=== PATIENT | male | born 1980 | race Caucasian/White ===

== ENCOUNTER 2018-09-12 12:30 | Emergency (ER) | payer MEDICAID ==
[~2018-09-12] VITALS: Ht 172.7 cm; Wt 81.4 kg
[2018-09-12 12:38] VITALS: BP 150/79; PULSE 80; RESP 16; Ht 172.7 cm; Wt 81.4 kg
--- NOTE | 2018-09-12 13:48 | ERD ---
ER Documentation Chief Complaint Chief Complaint RT EYE REDNESS , ONSET LAST NIGHT HPI 38-year-old male presents with complaint of right eye redness and pain since last night. 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 ROS All systems reviewed and are negative except as per history of present illness. Medications Home Meds Active Scripts Ibuprofen* (Motrin*) 600 Mg Tab, 600 MG PO Q6, #30 TAB Prov:PAPI HERNANDEZ 09/12/18 Erythromycin Base (Erythromycin) 1 Gm Oint...g., 1 APPLIC RIGHT EYE QID for 7 Days Prov:PAPI HERNANDEZ 09/12/18 Allergies Allergies: Coded Allergies: No Known Allergy (Unverified , 09/12/18) PMhx/Soc Medical and Surgical Hx: pt denies Medical Hx, pt denies Surgical Hx Hx Alcohol Use: No Hx Substance Use: No Hx Tobacco Use: No Smoking Status: Never smoker FmHx Family History: No diabetes, No coronary disease, No other Physical Exam Vitals Vital Signs Date Temp Pulse Resp B/P (MAP) Pulse Ox O2 O2 Flow FiO2 Time Delivery Rate 09/12/18 98.2 80 16 150/79 98 12:38 (102) Physical Exam Const: No acute distress Head: Atraumatic Eyes: Normal Conjunctiva ENT: Normal External Ears, Nose and Mouth. Neck: Full range of motion. No meningismus. Resp: Clear to auscultation bilaterally Cardio: Regular rate and rhythm, no murmurs Abd: Soft, non tender, non distended. Normal bowel sounds Skin: No petechiae or rashes Back: No midline or flank tenderness Ext: No cyanosis, or edema Neur: Awake and alert Psych: Normal Mood and Affect Eye Exam w/ Wood's Lamp - bilateral: Visual Acuity: WNL Visual Campos: Intact in all four quadrants bilaterally Lac ducts/glands: No swelling Lids w/ evertion: Normal, no foreign body Conj/Rosebud: Clear, negative Fluorescein/Verónica's Anterior Chamber: Clear Tonopen readings: 22 Retina exam: No obvious abnormality Results 24 hrs Current Medications Medications Dose Sig/Jose L Start Time Status Last (Trade) Ordered Route PRN Stop Time Admin Dose Reason Admin Fluorescein 1 strip ONCE ONCE 09/12/18 DC Sodium RIGHT EYE 14:00 09/12/18 (Melsa-U-Orye 14:01 p) Tetracaine 1 drop ONCE ONCE 09/12/18 DC HCl RIGHT EYE 14:00 09/12/18 (Tetracaine 14:01 0.5% Steri-Unit Nalini) 1 applic ONCE ONCE 09/12/18 DC 09/12/18 Erythromycin RIGHT EYE 14:00 09/12/18 14:09 14:01 (Erythromycin Oph Oint) Sodium 1,000 ml CONT BLADDER 09/12/18 Chloride IRRIG IRR 15:30 (NS (Irrig)) Procedures/MDM MDM: Hsaver lamp and Bi-Pen readings within normal limits. Patient's eye was irrigated. Patient given erythromycin base in the ER. I have low suspicion for globe rupture, iritis, hyphema, corneal abrasion, corneal ulcer, or any other emergent condition. Patient advised to follow-up with [facility] within 24 hours. Patient discharged with strict ER precautions. Patient advised to follow up with PMD. All questions answered at discharge. Departure Diagnosis: Primary Impression: Conjunctivitis Condition: Stable PAPI HERNANDEZ Sep 12, 2018 13:48
[2018-09-12] MEDS ORDERED: FLUORESCEIN STRIP RIGHT EYE ONE (14:00)
[2018-09-12] MEDS ORDERED: TETRACAINE 0.5% 4 ML OPH RIGHT EYE ONE (14:00)
[2018-09-12] MEDS ORDERED: ERYTHROMYCIN 1 GM OPH OINT RIGHT EYE ONE (14:00)
[2018-09-12] MEDS ORDERED: ERYT1OIN6 RIGHT EYE (15:19)
[2018-09-12] MEDS ORDERED: IBUP-1542 PO (15:22)
[2018-09-12] MEDS ORDERED: SODIUM CHLORIDE 0.9% 1L IRRIG IRR SCH (15:30)
== END 2018-09-12 15:35 | disposition home or self-care (01) ==
LOC: FTE 12:30
DX: H10.9 Unspecified conjunctivitis (principal)
CPT/HCPCS: Z7502; Z7610; 99283